=== PATIENT | female | born 1955 ===

== ENCOUNTER 2017-05-15 06:27 | Day surgery (SDC) | payer OTHER ==
[2017-05-15] MEDS ORDERED: PERCOCET 5-3251 EACH PO (09:22)
[2017-05-15] MEDS ORDERED: RECTICARE30 GM TOP (09:23)
== END 2017-05-15 13:55 | disposition home or self-care (01) ==
LOC: CIR.AMB 06:27
DX: K64.4 Residual hemorrhoidal skin tags (principal); K64.5 Perianal venous thrombosis; K60.1 Chronic anal fissure